=== PATIENT | male | born 1980 | race Caucasian/White ===

== ENCOUNTER 2017-11-18 15:35 | Emergency (ER) | payer BC ==
--- NOTE | 2017-11-18 19:33 | EDM.PDOC ---
ED HPI GENERAL MEDICAL PROBLEM - General Chief Complaint: ENT Problem Stated Complaint: RIPPED EAR LOOP OUT Time Seen by Provider: 11/18/17 19:28 Source of Information: Reports: Patient History Limitations: Reports: No Limitations - History of Present Illness INITIAL COMMENTS - FREE TEXT/NARRATIVE: HISTORY AND PHYSICAL: History of present illness: 37-year-old male visiting emergency department with chief complaint of left ear laceration. Patient states he was getting into a car and hit his left ear on the windowsill and it subsequently grabbed the corner of his earing and "yanked it out". Patient felt immediate pain and noticed a complete laceration to the left earlobe. Patient states that that he has had a tetanus vaccination within the last 5 years. He denies any other significant trauma. Denies any hearing problem. He is a type II diabetic but has no medical allergies. Review of systems: As per history of present illness and below otherwise all systems reviewed and negative. Past medical history: As per history of present illness and as reviewed below otherwise noncontributory. Surgical history: As per history of present illness and as reviewed below otherwise noncontributory. Social history: No reported history of drug or alcohol abuse. Family history: As per history of present illness and as reviewed below otherwise noncontributory. Physical exam: HEENT: There is a laceration to the left earlobe complete through and through of the left lower tragus area Atraumatic, normocephalic, pupils reactive, negative for conjunctival pallor or scleral icterus, mucous membranes moist, throat clear, neck supple, nontender, trachea midline. Lungs: Clear to auscultation, breath sounds equal bilaterally, chest nontender. Heart: S1S2, regular, negative for clicks, rubs, or JVD. Abdomen: Soft, nondistended, nontender. Negative for masses or hepatosplenomegaly. Negative for costovertebral tenderness. Pelvis: Stable nontender. Genitourinary: Deferred. Rectal: Deferred. Extremities: Atraumatic, negative for cords or calf pain. Neurovascular unremarkable. Neuro: Awake, alert, oriented. Cranial nerves II through XII unremarkable. Cerebellum unremarkable. Motor and sensory unremarkable throughout. Exam nonfocal. Diagnostics: Therapeutics: 6 interrupted 6.0 Ethilon sutures 2 mL lidocaine 1% Impression: Left earlobe laceration Plan: Using 6 interrupted is able approximate left earlobe into correct position. Patient tolerated procedure well and there were no Medications. Patient was instructed to have sutures removed in 5-7 days. Keep area clean and dry. Watch for any signs of infection including but not limited to swelling, increased redness, increased pain, purulent drainage. He should return to the emergency department immediately if he has any new or worsening symptoms. Left Ear Pain Score (Numeric/FACES): 6 - Related Data Allergies Allergy/AdvReac Type Severity Reaction Status Date / Time No Known Allergies Allergy Verified 11/18/17 17:05 Home Meds: Home Meds buPROPion HCl [Bupropion HCl Sr] 200 mg PO BID 11/18/17 [History] metFORMIN [Glucophage XR] 500 mg PO DAILY 11/18/17 [History] Past Medical History Psychiatric History: Reports: Depression Endocrine/Metabolic History: Reports: Diabetes, Type II Social & Family History - Tobacco Use Smoking Status *Q: Never Smoker - Recreational Drug Use Recreational Drug Use: No ED ROS GENERAL - Review of Systems Review Of Systems: See Below ED EXAM, GENERAL - Physical Exam Exam: See Below Course - Vital Signs Last Recorded V/S: Last Vital Signs Temp 98.2 F 11/18/17 17:08 Pulse 82 11/18/17 17:08 Resp 18 11/18/17 17:08 BP 151/72 H 11/18/17 17:08 Pulse Ox 97 11/18/17 17:08 - Orders/Labs/Meds Meds: Medications Discontinued Medications Generic Name Dose Route Start Last Admin Trade Name Sly PRN Reason Stop Dose Admin Lidocaine HCl 5 ml 11/18/17 17:53 Xylocaine-Mpf 1% INJECT 11/18/17 17:54 ONETIME ONE Departure - Departure Time of Disposition: 19:32 Disposition: Home, Self-Care 01 Condition: Good Clinical Impression: Laceration of left ear, external Qualifiers: Encounter type: initial encounter Qualified Code(s): S01.312A - Laceration without foreign body of left ear, initial encounter - Discharge Information Referrals: PCP,None [Primary Care Provider] - Additional Instructions: My general discharge The following information is given to patients seen in the emergency department who are being discharged to home. This information is to outline your options for follow-up care. We provide all patients seen in our emergency department with a follow-up referral. The need for follow-up, as well as the timing and circumstances, are variable depending upon the specifics of your emergency department visit. If you don't have a primary care physician on staff, we will provide you with a referral. We always advise you to contact your personal physician following an emergency department visit to inform them of the circumstance of the visit and for follow-up with them and/or the need for any referrals to a consulting specialist. The emergency department will also refer you to a specialist when appropriate. This referral assures that you have the opportunity for follow-up care with a specialist. All of these measure are taken in an effort to provide you with optimal care, which includes your follow-up. Under all circumstances we always encourage you to contact your private physician who remains a resource for coordinating your care. When calling for follow-up care, please make the office aware that this follow-up is from your recent emergency room visit. If for any reason you are refused follow-up, please contact the [facility] Emergency Department at and asked to speak to the emergency department charge nurse. [facility] [address] [place] [phone] Keep area clean and dry area. Follow-up with primary care physician in 5-7 days for suture removal. Take Tylenol or ibuprofen for pain and inflammation. Return emergency department if any new or worsening symptoms.
== END 2017-11-18 19:35 | disposition home or self-care (01) ==
LOC: MW.ED 15:35
DX: S01.312A Laceration without foreign body of left ear, initial encounter (principal); E11.9 Type 2 diabetes mellitus without complications; Z79.84 Long term (current) use of oral hypoglycemic drugs; W23.0XXA Caught, crushed, jammed, or pinched between moving objects, initial encounter
CPT/HCPCS: 12011; 99282